=== PATIENT | male | born 1990 | race Caucasian/White ===

== ENCOUNTER 2017-02-16 20:03 | Emergency (ER) | payer OTHER ==
[~2017-02-16] VITALS: Ht 177.8 cm; Wt 95.3 kg
[~2017-02-16 20:03] MED LIST: ADDERALL XR20 MG PO; ADDERALL20 MG PO; AMANTIDINE HCL100 MG PO; AMBIEN10 M1 PO; BACTRIM DS 8001 TA1 PO; BENZTROPINE MESY2 MG PO; CLARITIN10 MG PO; CLEOCIN150 MG PO; CLINDAMYCIN HC300 MG PO; COGENTIN2 MG PO; CYMBALTA30 MG PO; GEODON60 MG PO; KEFLEX500 MG PO; KLONOPIN1 MG PO; MOTRIN800 MG PO; NEURONTIN600 MG PO; PROPRANOLOL10 MG PO; SEPTRA DS 800 M1 TAB PO; SEROQUEL100 MG PO; SEROQUEL200 MG PO; SEROQUEL400 M1 PO; SEROQUEL400 MG PO; TRILEPTAL600 MG PO; VICODIN 5/500 505 MG PO; VITAMIN D50000 I3 PO; XANAX1 MG PO; ZITHROMAX Z PA250 MG PO; ZOLOFT100 MG PO
[2017-02-16] MEDS ORDERED: PROAIR HFA8.5 GM INH (21:19)
[2017-02-16] MEDS ORDERED: TESSALON PERLE100 M1 PO (21:19)
== END 2017-02-16 21:24 | disposition home or self-care (01) ==
LOC: ED 20:03
DX: R05 Cough (principal); Z79.899 Other long term (current) drug therapy

== ENCOUNTER 2017-06-13 20:37 | Emergency (ER) | payer OTHER ==
[~2017-06-13] VITALS: Wt 93.9 kg
[~2017-06-13 20:37] MED LIST changes: +PROAIR HFA8.5 GM INH; +TESSALON PERLE100 M1 PO
== END 2017-06-14 03:00 | disposition home or self-care (01) ==
LOC: ED 20:37
DX: F39 Unspecified mood [affective] disorder (principal)